=== PATIENT | female | born 1995 | race Caucasian/White ===

== ENCOUNTER 2018-06-02 21:05 | Emergency (ER) | payer SELFPAY ==
[~2018-06-02] VITALS: Ht 175.3 cm; Wt 61.2 kg
--- NOTE | 2018-06-02 21:15 | NUR ---
BIB [facility] TO ER BED 11 C/C OF OD. PARAMEDICS REPORT THAT PT TOOK HALF XANAX AND SNIFFED FENTANYL. CPR WAS IN PROGRESS WHEN PARAMEDICS ARRIVED ON SCENE AND PT WAS UNRESPONSIVE. 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 CURRENTLY PT AA/OX4. NO S/S SOB. SKIN PINK, WARM, DRY. MOVES ALL EXTREMITIES WELL. PEDAL PULSES PRESENT. NO TRAUMA NOTED FROM HEAD TO TOE. NO N/V. NAD. VSS. STABLE CONDITION. WILL CONTINUE TO MONITOR.
--- NOTE | 2018-06-02 21:25 | NUR ---
EKG AT BEDSIDE
[2018-06-02 21:56] LABS: BASOPHILS # (AUTO) 0.1 /CMM (0.0-0.2); EOSINOPHILS % (AUTO) 2.4 % (0.0-6.0); HEMATOCRIT 38 % (33-45); HEMOGLOBIN 12.5 g/dL (11.5-14.8); LYMPHOCYTES # (AUTO) 3.3 /CMM (0.8-4.8); LYMPHOCYTES % (AUTO) 41.3 % (20.0-44.0); MEAN CORPUSCULAR HGB CONC 33 g/dl (31.0-36.0); MEAN CORPUSCULAR VOLUME 93 fL (82-100); MONOCYTES # (AUTO) 0.5 /CMM (0.1-1.30); MONOCYTES % (AUTO) 5.8 % (2.0-12.0); NEUTROPHILS % (AUTO) 49.5 % (43.0-81.0); PLATELET COUNT (AUTO) 451 /CMM (150-450); RDW COEFFICIENT OF VARIATION 13.9 (11.5-15.0); RED BLOOD CELL COUNT(AUTO) 4.05 MIL/uL (4.0-5.2); WHITE BLOOD COUNT (AUTO) 8.1 K/uL (4.3-11.0)
[2018-06-02] MEDS ORDERED: LORAZEPAM 1 MG TABLET PO ONE (22:00)
[2018-06-02] MEDS ORDERED: ONDANSETRON 4 MG TAB.RAPDIS PO ONE (22:00)
[2018-06-02 22:08] LABS: CALCIUM, SERUM 8.9 mg/dL (8.5-10.1); CARBON DIOXIDE 29 mmol/L (21-32); CHLORIDE 99 mmol/L (98-107); CREATININE 0.9 mg/dL (0.6-1.3); GLUCOSE 84 mg/dL (74-106); POTASSIUM 3.3 mmol/L (3.5-5.1); SODIUM SERUM 136 mmol/L (136-145); UREA NITROGEN, BLOOD 17 mg/dL (7-18)
--- NOTE | 2018-06-02 22:13 | NUR ---
XRAY AT BEDSIDE.
[2018-06-02 22:14] LABS: ACETAMINOPHEN 0 ug/ml (10-30); ALANINE AMINOTRANSFERASE 25 U/L (12-78); ALCOHOL, BLOOD < 3 mg/dL (0-0); ALKALINE PHOSPHATASE 46 U/L (46-116); ASPARTATE AMINOTRANSFERASE 35 U/L (15-37); BILIRUBIN,DIRECT 0.2 mg/dL (0.0-0.2); BILIRUBIN,TOTAL 1.3 mg/dL (0.2-1.0); SALICYLATE 2.9 mg/dL (2.8-20.0); TOTAL PROTEIN, SERUM 7.6 g/dL (6.4-8.2)
--- NOTE | 2018-06-02 22:39 | NUR ---
PT RESTING IN BED WITH FAMILY AT BEDSIDE. NAD. VSS. STABLE CONDITION.
[2018-06-02] MEDS ORDERED: ONDANSETRON 4 MG TAB.RAPDIS ONE (22:45)
[2018-06-02] MEDS ORDERED: LORAZEPAM 1 MG TABLET ONE (22:45)
[2018-06-02 23:15] LABS: APPEARANCE,URINE SL CLOUDY (CLEAR); BILIRUBIN,URINE 1+ (NEGATIVE); BLOOD, URINE TRACE Ery/uL (NEGATIVE); COLOR,URINE DARK YELLO (YELLOW); KETONES,URINE NEGATIVE (NEGATIVE); LEUKOCYTE ESTERASE ,URINE NEGATIVE (NEGATIVE); NITRITE, URINE NEGATIVE (NEGATIVE); PH,URINE 5.5 (5.0-8.0); PROTEIN,URINE 2+ mg/dl (NEGATIVE); UGLUCOSE NEGATIVE (NEGATIVE); UROBILINOGEN,URINE 0.2 EU/dL (0.2)
[2018-06-02 23:19] LABS: BACTERIA,URINE None seen /HPF (None Seen); SQUAMOUS EPITHELIAL CELL,UR Moderate /HPF (None Seen); WBC,URINE 0-2 /HPF (0-3)
--- NOTE | 2018-06-02 23:38 | NUR ---
X RAY AT BEDSIDE
--- NOTE | 2018-06-02 23:49 | NUR ---
AMBULATED TO BATHROOM WITH STABLE GAIT. NAD. VSS.
[2018-06-02] MEDS ORDERED: POTASSIUM CHLORIDE 20 MEQ TAB.PRT.SR PO ONE (23:58)
[2018-06-03] MEDS ORDERED: POTASSIUM CHLORIDE 20 MEQ TAB.PRT.SR PO ONE ×2 (00:02)
[2018-06-03 01:21] VITALS: BP 111/70
--- NOTE | 2018-06-03 01:22 | NUR ---
PATIENT HAS AMA. ABBIE DOMINGUEZ
== END 2018-06-03 01:21 | disposition home or self-care (01) ==
LOC: ER 21:08
DX: T42.4X1A Poisoning by benzodiazepines, accidental (unintentional), initial encounter (principal); S80.211A Abrasion, right knee, initial encounter; J45.909 Unspecified asthma, uncomplicated; X58.XXXA Exposure to other specified factors, initial encounter; Y93.89 Activity, other specified; Y92.89 Other specified places as the place of occurrence of the external cause; Y99.8 Other external cause status
CPT/HCPCS: 36415; 71045-TC; 80048-TC; 80076-TC; 80305; 81000-TC; 84703-TC; 85025-TC; A4606; G0480; Q0162; Z7610